=== PATIENT | female | born 2000 | race Caucasian/White ===

== ENCOUNTER 2022-09-26 16:54 | Emergency (ER) | payer OTHER ==
[~2022-09-26] VITALS: Ht 162.6 cm; Wt 90.0 kg
[2022-09-26] MEDS ORDERED: VENTAER INH (18:21)
[2022-09-26 18:39] VITALS: BP 136/82
== END 2022-09-26 18:41 | disposition home or self-care (01) ==
LOC: M ED 16:54
DX: Z11.3 Encounter for screening for infections with a predominantly sexual mode of transmission (principal); Z76.0 Encounter for issue of repeat prescription; F17.200 Nicotine dependence, unspecified, uncomplicated

== ENCOUNTER 2022-10-30 01:43 | Emergency (ER) | payer OTHER ==
[~2022-10-30] VITALS: Ht 162.6 cm; Wt 91.1 kg
[~2022-10-30 01:43] MED LIST: VENTAER INH
[2022-10-30 01:44] VITALS: BP 127/86
== END 2022-10-30 05:36 | disposition left against medical advice (07) ==
LOC: M ED 01:43
DX: Z53.21 Procedure and treatment not carried out due to patient leaving prior to being seen by health care provider (principal)

== ENCOUNTER 2023-04-27 22:23 | Outpatient (CLI) | payer OTHER ==
[~2023-04-27] VITALS: Ht 162.6 cm; Wt 110.7 kg
[2023-04-27 22:43] VITALS: BP 133/79
[2023-04-27 23:27] VITALS: BP 126/79
== END 2023-04-28 00:20 | disposition home or self-care (01) ==
LOC: M LDO 22:23
PROVIDERS: ATTEND Obstetrics & Gynecology
DX: O26.893 Other specified pregnancy related conditions, third trimester (principal); N89.8 Other specified noninflammatory disorders of vagina; Z3A.28 28 weeks gestation of pregnancy; O09.33 Supervision of pregnancy with insufficient antenatal care, third trimester
CPT/HCPCS: 59025; G0463

== ENCOUNTER 2023-07-12 04:42 | Outpatient (CLI) | payer OTHER ==
[~2023-07-12] VITALS: Ht 162.6 cm; Wt 122.5 kg
[2023-07-12 05:02] VITALS: BP 123/67
[2023-07-12] MEDS ORDERED: METOCLOPRAMIDE 10MG TAB PO ONE (05:10)
[2023-07-12] MEDS ORDERED: diphenhydrAMINE 25MG CAP PO ONE (05:10)
[2023-07-12] MEDS ORDERED: ACETAMINOPHEN 500 MG TAB PO ONE (05:10)
== END 2023-07-12 06:42 | disposition home or self-care (01) ==
LOC: M LDO 04:42
PROVIDERS: ATTEND Obstetrics & Gynecology
DX: O26.893 Other specified pregnancy related conditions, third trimester (principal); O99.513 Diseases of the respiratory system complicating pregnancy, third trimester; O99.213 Obesity complicating pregnancy, third trimester; R51.9 Headache, unspecified; J45.909 Unspecified asthma, uncomplicated; E66.9 Obesity, unspecified; Z3A.38 38 weeks gestation of pregnancy
CPT/HCPCS: 59025; G0463

== ENCOUNTER 2023-07-23 17:40 | Outpatient (CLI) | payer OTHER ==
[~2023-07-23] VITALS: Ht 162.6 cm; Wt 126.3 kg
[2023-07-23] MEDS ORDERED: HOME MED LIST COMPLETE! XX SCH (18:00)
[2023-07-23 19:34] VITALS: BP 148/89
[2023-07-23 19:54] VITALS: BP 136/89
[2023-07-24] MEDS ORDERED: ACET1TAB55 PO (11:07)
== END 2023-07-23 20:24 | disposition home or self-care (01) ==
LOC: M LDO 17:40 → UNDOADMIN 07-24 10:45 → M LDI 07-24 10:45 → UNDODISIN 07-24 10:46
PROVIDERS: ATTEND Obstetrics & Gynecology
DX: O47.1 False labor at or after 37 completed weeks of gestation (principal); Z3A.40 40 weeks gestation of pregnancy
CPT/HCPCS: 59025; G0463

== ENCOUNTER 2023-08-30 00:58 | Emergency (ER) | payer OTHER ==
[~2023-08-30] VITALS: Ht 162.6 cm; Wt 105.2 kg
[~2023-08-30 00:58] MED LIST changes: +ACET1TAB55 PO
[2023-08-30 00:59] VITALS: TEMP 97.7
[2023-08-30] MEDS ORDERED: predniSONE 20 MG TAB PO ONE (01:50)
[2023-08-30] MEDS: IPRATROPIUM 0.5MG/ALBUTEROL 2.5MG INH SOL UD 3ML (DUONEB) NEB PRN ×2 (01:58→02:02)
[2023-08-30 02:30] VITALS: BP 119/83
[2023-08-30] MEDS ORDERED: PRED20TA PO (02:57)
[2023-08-30] MEDS ORDERED: ALBUTEROL 90 MCG/ACT 8GM HFA INHALER INH ONE (03:00)
[2023-08-30 03:15] VITALS: O2SAT 99
== END 2023-08-30 03:32 | disposition home or self-care (01) ==
LOC: M ED 00:58
DX: J45.901 Unspecified asthma with (acute) exacerbation (principal); Z79.1 Long term (current) use of non-steroidal anti-inflammatories (NSAID); Z79.52 Long term (current) use of systemic steroids
CPT/HCPCS: 71046; 87486; 87581; 87633; 87798; 94640; 99284; J7512

== ENCOUNTER 2023-09-13 01:37 | Emergency (ER) | payer OTHER ==
[~2023-09-13] VITALS: Ht 162.6 cm; Wt 105.8 kg
[2023-09-13 01:37] VITALS: TEMP 97.4
[~2023-09-13 01:37] MED LIST changes: +PRED20TA PO
[2023-09-13] MEDS ORDERED: VENTAER INH (04:28)
[2023-09-13 04:30] VITALS: BP 109/70; O2SAT 97
== END 2023-09-13 04:37 | disposition home or self-care (01) ==
LOC: M ED 01:37
DX: J45.901 Unspecified asthma with (acute) exacerbation (principal); Z79.1 Long term (current) use of non-steroidal anti-inflammatories (NSAID); Z79.52 Long term (current) use of systemic steroids

== ENCOUNTER 2024-01-29 23:20 | Emergency (ER) | payer OTHER ==
[~2024-01-29] VITALS: Ht 162.6 cm; Wt 106.0 kg
[2024-01-29 23:20] VITALS: BP 130/70; TEMP 98.6; O2SAT 97
[2024-01-30 00:32] LABS: HEMATOCRIT 40.5 % (36.0-47.0); HEMOGLOBIN 13.1 g/dl (12.0-15.5); MEAN CORPUSCULAR HGB CONC 32.3 g/dl (32.0-36.5); MEAN CORPUSCULAR VOLUME 77.3 fl (80.0-96.0); PLATELET COUNT, AUTOMATED 343 10^3/uL (150-450); RED BLOOD COUNT 5.24 10^6/uL (4.00-5.40); WHITE BLOOD COUNT 14.6 10^3/uL (4.0-10.0)
[2024-01-30 00:40] LABS: HCG, SERUM QUANTITATIVE 108.3 MIU/ML (<4.2)
[2024-01-30 00:41] LABS: BLOOD UREA NITROGEN 11 MG/DL (9-23); CALCIUM LEVEL 9.1 MG/DL (8.5-10.1); CARBON DIOXIDE LEVEL 24 MMOL/L (20-31); CHLORIDE LEVEL 105 MMOL/L (98-107); CREATININE FOR GFR 0.63 MG/DL (0.55-1.30); GLOMERULAR FILTRATION RATE > 60.0 (>60); GLUCOSE, FASTING 105 MG/DL (60-100); POTASSIUM SERUM 4.3 MMOL/L (3.5-5.1); SODIUM LEVEL 138 MMOL/L (136-145)
[2024-01-30 01:27] LABS: ATYPICAL LYMPH 5 % (0-5); EOSINOPHILS 6 % (0-3); LYMPHOCYTES 31 % (16-44); MONOCYTES 2 % (0-5); NEUTROPHILS 56 % (28-66)
[2024-01-30 01:28] LABS: ANISOCYTOSIS 1+; MICROCYTOSIS 1+; PLATELET ESTIMATE NORMAL (NORMAL)
== END 2024-01-30 04:10 | disposition left against medical advice (07) ==
LOC: M ED 23:20
DX: Z53.21 Procedure and treatment not carried out due to patient leaving prior to being seen by health care provider (principal)

== ENCOUNTER 2025-01-10 14:00 | Emergency (ER) | payer OTHER ==
[~2025-01-10] VITALS: Ht 162.6 cm; Wt 120.4 kg
[2025-01-10] MEDS: ACETAMINOPHEN 500 MG TAB PO ONE (15:00)
[2025-01-10 16:00] VITALS: BP 128/65; TEMP 100; O2SAT 97
== END 2025-01-10 16:00 | disposition home or self-care (01) ==
LOC: M ED 14:00
DX: O98.512 Other viral diseases complicating pregnancy, second trimester (principal); J10.1 Influenza due to other identified influenza virus with other respiratory manifestations; I10 Essential (primary) hypertension; J45.909 Unspecified asthma, uncomplicated; Z3A.24 24 weeks gestation of pregnancy

== ENCOUNTER → 2025-05-04 13:32 | Emergency (ER) | payer OTHER, SELFPAY ==
[~2025-05-04 13:32] MED LIST changes: +SYMB16INH INH
== END | disposition admitted as inpatient to this hospital (09) ==
LOC: M ED 13:32
DX: Z53.21 Procedure and treatment not carried out due to patient leaving prior to being seen by health care provider (principal)

== ENCOUNTER 2025-05-06 14:54 | Inpatient (IN) | payer OTHER ==
[~2025-05-06] VITALS: Ht 162.6 cm; Wt 126.6 kg
[2025-05-06] MEDS ORDERED: LIDOCAINE 1% MDV 20 ML VIAL INFIL PRN (15:20)
[2025-05-06] MEDS ORDERED: OXYTOCIN DRIP 30 UNITS in IV 1 EA IV PRN (15:20)
[2025-05-06 15:49] VITALS: BP 113/69
[2025-05-06] MEDS: miSOPROStol 50 MCG 1/2 TABLET SL SCH (15:57)
[2025-05-06 15:59] LABS: PLATELET COUNT, AUTOMATED 281 10^3/uL (150-450)
[2025-05-06] MEDS ORDERED: HOME MED LIST COMPLETE! XX SCH (16:05)
[2025-05-06 16:08] LABS: BASO # 0.0 10^3/uL (0.0-0.2); BASO % 0.2 % (0.0-1.0); EOS # 0.2 10^3/uL (0.0-0.5); EOS % 1.4 % (0.0-3.0); LYMPH # 2.6 10^3/uL (1.5-5.0); LYMPH % 22.9 % (24.0-44.0); MONO # 0.7 10^3/uL (0.0-0.8); MONO % 5.7 % (2.0-8.0); NEUTROPHILS # 7.9 10^3/uL (1.5-8.5); NEUTROPHILS % 69.2 % (36.0-66.0)
[2025-05-06 17:01] LABS: HIV 1&2 SCREEN NEGATIVE (NEGATIVE)
[2025-05-06 17:09] VITALS: BP 124/63
[2025-05-06 17:09] LABS: HEPATITIS C VIRUS ABY INDEX 0.10 INDEX (<0.8)
[2025-05-06 18:28] VITALS: BP 124/65
== END 2025-05-07 01:06 | disposition home or self-care (01) | DRG 833 ==
LOC: M LDI 14:54
PROVIDERS: ADMIT Specialist; ATTEND Specialist
PROC: 3E0P7GC Introduction of Other Therapeutic Substance into Female Reproductive, Via Natural or Artificial Opening (ICD-10-PCS; principal; 2025-05-06)
DX: O48.0 Post-term pregnancy (principal); O99.353 Diseases of the nervous system complicating pregnancy, third trimester; Z3A.41 41 weeks gestation of pregnancy; O99.513 Diseases of the respiratory system complicating pregnancy, third trimester; J45.909 Unspecified asthma, uncomplicated; G43.909 Migraine, unspecified, not intractable, without status migrainosus; Z79.51 Long term (current) use of inhaled steroids; Z79.899 Other long term (current) drug therapy

== ENCOUNTER 2025-08-13 13:24 | Emergency (ER) | payer OTHER ==
[~2025-08-13] VITALS: Ht 162.6 cm; Wt 113.9 kg
[2025-08-13] MEDS ORDERED: ONDA-282 PO (17:41)
[2025-08-13] MEDS: IBUPROFEN 800 MG TAB PO ONE (17:45)
[2025-08-13] MEDS: ONDANSETRON 4MG ORAL DISINTEGRATING TAB PO ONE (17:45)
[2025-08-13 17:48] VITALS: BP 136/75; TEMP 99.3; O2SAT 97
== END 2025-08-13 17:50 | disposition home or self-care (01) ==
LOC: M ED 13:24
DX: S06.0X0A Concussion without loss of consciousness, initial encounter (principal); Y92.9 Unspecified place or not applicable; Y93.9 Activity, unspecified; Y99.9 Unspecified external cause status; W51.XXXA Accidental striking against or bumped into by another person, initial encounter; Z79.51 Long term (current) use of inhaled steroids; Z79.899 Other long term (current) drug therapy